=== PATIENT | male | born 1960 | race Caucasian/White ===

== ENCOUNTER 2018-01-06 07:30 | Inpatient (IN) | payer OTHER ==
[~2018-01-06] VITALS: Ht 172.7 cm; Wt 88.5 kg
[2018-01-06] MEDS ORDERED: ESKALITH300 MG PO (17:04)
[2018-01-06] MEDS ORDERED: RISPERDAL1 MG PO (17:04)
[2018-01-06] MEDS ORDERED: PROZAC40 MG PO (17:05)
[2018-01-06] MEDS ORDERED: RESTORIL30 M1 PO (17:05)
[2018-01-06] MEDS ORDERED: OXICODONE PO (17:06)
[2018-01-14] MEDS ORDERED: PERCOCET 5-3251 EACH PO (10:25)
[2018-01-14] MEDS ORDERED: DOCUSATE SODIU100 MG PO (10:25)
[2018-01-14] MEDS ORDERED: CLONAZEPAM1 MG PO (10:25)
[2018-01-14] MEDS ORDERED: AMOX-CLAV 875-1 EACH PO (10:25)
[2018-01-14] MEDS ORDERED: GABAPENTIN800 MG PO (10:25)
== END 2018-01-14 16:47 | disposition home or self-care (01) | DRG 460 ==
LOC: O/R 01-13 04:50 → PED 01-13 04:50 → SURH 01-13 07:30 → PED 01-13 15:28
PROVIDERS: Orthopaedic Surgery Orthopaedic Surgery of the Spine
PROC: 0SG30AJ Fusion of Lumbosacral Joint with Interbody Fusion Device, Posterior Approach, Anterior Column, Open Approach (ICD-10-PCS; 2018-01-13)
PROC: 0ST40ZZ Resection of Lumbosacral Disc, Open Approach (ICD-10-PCS; 2018-01-13)
PROC: 07DS3ZZ Extraction of Vertebral Bone Marrow, Percutaneous Approach (ICD-10-PCS; 2018-01-13)
PROC: 00NY0ZZ Release Lumbar Spinal Cord, Open Approach (ICD-10-PCS; principal; 2018-01-13 13:00)
DX: M47.27 Other spondylosis with radiculopathy, lumbosacral region (principal); F31.89 Other bipolar disorder; M51.17 Intervertebral disc disorders with radiculopathy, lumbosacral region